=== PATIENT | female | born 1960 | race Caucasian/White ===

== ENCOUNTER → 2020-04-04 11:58 | Outpatient (BNVA) | payer MEDICARE, MEDICAID, SELFPAY | PROVIDERS: PCP Family Medicine; Referring Provider Family Medicine; Visit Provider Specialist | DX: I99.8 Other disorder of circulatory system (principal); R55 Syncope and collapse; G43.109 Migraine with aura, not intractable, without status migrainosus; J44.9 Chronic obstructive pulmonary disease, unspecified; I25.10 Atherosclerotic heart disease of native coronary artery without angina pectoris; F17.220 Nicotine dependence, chewing tobacco, uncomplicated; Z86.73 Personal history of transient ischemic attack (TIA), and cerebral infarction without residual deficits | CPT/HCPCS: 99205 ==